=== PATIENT | female | born 1985 | race Caucasian/White ===

== ENCOUNTER 2018-03-24 08:48 | Emergency (ER) | payer OTHER ==
[~2018-03-24] VITALS: Ht 162.6 cm; Wt 84.1 kg
[2018-03-24 12:10] VITALS: BP 116/77
== END 2018-03-24 12:11 | disposition home or self-care (01) ==
LOC: ED 08:48
DX: S60.416A Abrasion of right little finger, initial encounter (principal); Z87.891 Personal history of nicotine dependence; W23.0XXA Caught, crushed, jammed, or pinched between moving objects, initial encounter; Y99.0 Civilian activity done for income or pay